=== PATIENT | female | born 1975 | race Caucasian/White ===

== ENCOUNTER 2016-10-11 16:54 | Emergency (ER) | payer OTHER ==
[2016-10-11 17:16] VITALS: BP 128/90; PULSE 81; RESP 18; TEMP 97.9; O2SAT 100
--- NOTE | 2016-10-11 18:05 | C.PDOC ---
History Of Present Illness 41 y/o female presents to ED with c/o left 5th toe pain after stubbing her toe 2 days ago. Patient states she has had continuous pain, prompting visit. Denies weakness, numbness, or any other injury. Time Seen by Provider: 10/11/16 17:01 Chief Complaint (Nursing): Lower Extremity Problem/Injury History Per: Patient History/Exam Limitations: no limitations Onset/Duration Of Symptoms: Days, Persistent Current Symptoms Are (Timing): Still Present Recent travel outside of the [place]: No Past Medical History Reviewed: Historical Data, Nursing Documentation, Vital Signs Vital Signs: Last Vital Signs Temp 97.9 F 10/11/16 17:07 Pulse 81 10/11/16 17:07 Resp 18 10/11/16 17:07 BP 128/90 10/11/16 17:07 Pulse Ox 100 10/11/16 19:58 - Medical History PMH: No Chronic Diseases Family History: States: Unknown Family Hx - Social History Hx Alcohol Use: Yes Hx Substance Use: No - Immunization History Hx Influenza Vaccination: Yes Review Of Systems Except As Marked, All Systems Reviewed And Found Negative. Constitutional: Negative for: Fever Musculoskeletal: Positive for: Foot Pain (Left 5th Toe) Skin: Negative for: Rash Neurological: Negative for: Weakness, Numbness Physical Exam - Physical Exam Appears: Well, Non-toxic, No Acute Distress Skin: Normal Color, Warm, Dry Head: Atraumatic, Normacephalic Extremity: Normal ROM, Tenderness (minimal, left 5th toe), Capillary Refill (< 2 sec. ), No Deformity, No Swelling Extremity: Bilateral: Normal Color And Temperature Pulses: Left Dorsalis Pedis: Normal, Right Dorsalis Pedis: Normal Neurological/Psych: Oriented x3, Normal Motor, Normal Sensation Gait: Steady ED Course And Treatment O2 Sat by Pulse Oximetry: 100 (RA) Pulse Ox Interpretation: Normal - Other Rad Left Foot 5th Digit X-Ray X-Ray: Interpreted by Me, Viewed By Me Interpretation: Negative for fracture or dislocation. Progress Note: Left foot x-ray negative. On reassessment, patient is resting comfortably, and ambulatory in the ED with steady gait. Patient instructed to follow up with PMD within 1-2 days. Disposition - Disposition Referrals: [facility] [Outside] Disposition: HOME/ ROUTINE Disposition Time: 18:05 Condition: GOOD Additional Instructions: Follow up with the medical doctor within 1-2 days. Return if worsened. Instructions: Foot Contusion (ED) - Clinical Impression Clinical Impression: Toe contusion - PA / SORORITY MOTHER / Resident Statement MD/DO has reviewed & agrees with the documentation as recorded. - Scribe Statement The provider has reviewed the documentation as recorded by the Alexeiibirving Nance Provider Scribe Attestation: All medical record entries made by the Ольга were at my direction and personally dictated by me. I have reviewed the chart and agree that the record accurately reflects my personal performance of the history, physical exam, medical decision making, and the department course for this patient. I have also personally directed, reviewed, and agree with the discharge instructions and disposition.
--- NOTE | 2016-10-12 10:43 | RAD ---
PROCEDURE: HISTORY: toe injury, pain COMPARISON: None TECHNIQUE: Three views FINDINGS: No fracture or bone destruction noted. Minimal soft tissue fullness - 5th toe distal phalangeal and proximal metatarsal levels. IMPRESSION: No fracture dislocation. Soft tissue minimal swelling.
== END 2016-10-11 18:15 | disposition home or self-care (01) ==
LOC: C.ER 16:54
DX: S90.122A Contusion of left lesser toe(s) without damage to nail, initial encounter (principal); X58.XXXA Exposure to other specified factors, initial encounter